=== PATIENT | male | born 1985 | race Two or more races ===

== ENCOUNTER 2019-07-28 02:21 | Emergency (ER) | payer SELFPAY ==
--- NOTE | 2019-07-28 02:33 | NUR ---
PT LEFT WIHTOUT BEING SEEN. DR. KOO AWARE
== END 2019-07-28 02:37 | disposition left against medical advice (07) ==
LOC: ER 02:28
DX: Z53.21 Procedure and treatment not carried out due to patient leaving prior to being seen by health care provider (principal)